=== PATIENT | male | born 1970 | race Caucasian/White ===

== ENCOUNTER 2023-02-27 18:55 | Emergency (ER) | payer OTHER ==
[~2023-02-27] VITALS: Ht 182.9 cm; Wt 90.7 kg
[2023-02-27 19:09] VITALS: BP 141/100
[2023-02-27] MEDS ORDERED: CEPH500 PO (19:55)
== END 2023-02-27 20:04 | disposition home or self-care (01) ==
LOC: ER 18:55
DX: S51.811A Laceration without foreign body of right forearm, initial encounter (principal); W29.3XXA Contact with powered garden and outdoor hand tools and machinery, initial encounter
CPT/HCPCS: 12001; 90471; 90715; 99283-25; A9270